=== PATIENT | female | born 1970 | race Caucasian/White ===

== ENCOUNTER 2018-09-27 17:33 | Inpatient (IN) | payer OTHER ==
[~2018-09-27] VITALS: Ht 175.3 cm; Wt 99.8 kg
[2018-09-27 17:34] VITALS: BP 101/77
[2018-09-27] MEDS ORDERED: LYRICA150 MG PO (17:59)
[2018-09-27] MEDS ORDERED: GLYBURIDE 2.52.5 M1 PO (18:00)
[2018-09-27] MEDS ORDERED: NEURONTIN 400M400 M2 PO (18:00)
[2018-09-27 18:01] LABS: URINE BILIRUBIN NEGATIVE (Negative); URINE BLOOD NEGATIVE (Negative); URINE CLARITY CLEAR; URINE COLOR YELLOW; URINE GLUCOSE-RANDOM* 3+ (Negative); URINE KETONES NEGATIVE (Negative); URINE LEUKOCYTES NEGATIVE (Negative); URINE NITRITE NEGATIVE (Negative); URINE PROTEIN (DIPSTICK) NEGATIVE (Negative); URINE SPECIFIC GRAVITY 1.015 (1.005-1.035); URINE UROBILINOGEN 0.2 E.U./dl (0.2-1.0)
[2018-09-27 18:10] LABS: ABSOLUTE NEUTROPHILS 4.2 thou/uL (1.4-8.2); BASOPHILS 0.8 % (0.0-2.0); EOSINOPHILS 1.3 % (0.0-3.0); HEMATOCRIT 47.3 % (37.0-47.0); HEMOGLOBIN 16.4 gm/dL (12.0-15.0); LYMPHOCYTES 36.3 % (24.0-44.0); MCH 29.5 pg (26.0-34.0); MCHC 34.7 g/dL (28.0-37.0); MCV 84.9 fL (80.0-100.0); MONOCYTES 5.9 % (1.0-8.0); PLATELET COUNT 282 thou/uL (150-400); POLYS 55.7 % (36.0-66.0); RBC 5.57 mil/uL (4.20-5.00); WBC 7.6 thou/uL (4.0-11.0)
[2018-09-27 18:18] LABS: CALCIUM 9.5 mg/dL (8.5-10.1); CREATININE 0.8 mg/dL (0.6-1.0); POTASSIUM 3.7 mmol/L (3.5-5.1)
[2018-09-27 18:24] LABS: ALBUMIN 3.4 g/dL (3.4-5.0); DIRECT BILIRUBIN 0.1 mg/dL (<0.1-0.3); TOTAL BILIRUBIN 0.5 mg/dL (<0.1-1.0); TOTAL PROTEIN 8.8 g/dL (6.4-8.2)
[2018-09-27 20:32] VITALS: BP 112/92; BP 117/81
[2018-09-27 21:33] VITALS: BP 117/81
[2018-09-27 23:05] VITALS: BP 123/80
[2018-09-28 01:03] LABS: HEMATOCRIT 39.2 % (37.0-47.0); MCH 28.9 pg (26.0-34.0); MCHC 33.3 g/dL (28.0-37.0); MCV 86.7 fL (80.0-100.0); RBC 4.53 mil/uL (4.20-5.00); RDW 13.9 % (10.5-14.5); WBC 6.7 thou/uL (4.0-11.0)
[2018-09-28 01:08] LABS: HEMOGLOBIN 13.1 gm/dL (12.0-15.0)
[2018-09-28 01:16] LABS: ALBUMIN 2.7 g/dL (3.4-5.0); CALCIUM 7.9 mg/dL (8.5-10.1); CREATININE 0.7 mg/dL (0.6-1.0); POTASSIUM 3.6 mmol/L (3.5-5.1); TOTAL BILIRUBIN 0.5 mg/dL (<0.1-1.0)
--- NOTE | 2018-09-28 03:26 | NUR ---
PT ARRIVED FROM ED 200. VSS. ASESSMENT COMPLETED. ADMISSION COMPLETE. PT ORIENTED TO ROOM. ORDERS AKNOWLEDGED AND IMPLEMENTED. WILL CONTINUE POC UNTIL EOS.
[2018-09-28 04:00] VITALS: BP 98/61
[2018-09-28 07:48] VITALS: BP 118/74
--- NOTE | 2018-09-28 12:33 | NUR ---
ASSESSMENT-PT LIVES IN AN APT WITH HER SON. SHE SAYS HER EX SMASHED HER BLOOD GLUCOSE METER AND FLUSHED HER MEDICATIONS DOWN THE TOILET. PT SAYS SHE HAS LOTS OF BLOOD GLUCOSE STRIPS AT HOME BUT NEEDS A METER. ASKED HER TO SEE IF HER SON CAN BRING OVER A BOX OF THE STRIPS SO WE CAN TRY TO GET HER A METER TO FIT THEM. PT WALKS ON HER OWN AND DOES HER OWN ADLS. SHE CAN DRIVE BUT HER CAN IS BROKE DOWN PRESENTLY BUT WILL HAVE HER SON TAKE HER PLACES OR SHE CAN USE THE SON'S TRUCK TOO. PT SAYS SHE WILL NEED HELP WITH HER MEDICATIONS.
--- NOTE | 2018-09-28 12:37 | NUR ---
ASSUMED CARE AT 0700, SHIFT ASSESSMENT DONE, MEDS GIVEN, VSS. DENIES ANY PAIN AT THIS TIME. WOUND CONSULT CALLED. UP AD ISELA. ACHS, ON MODERATE DOSE, COVERAGE PER eMAR. WILL CONTINUE TO ASSESS AND ASSIST WITH ADLs NEEDED.
[2018-09-28 17:09] VITALS: BP 115/68
[2018-09-28 17:10] LABS: HIV ANTIBODY Non Reactive (Non Reactive)
--- NOTE | 2018-09-28 17:21 | NUR ---
assisted pt with dc meds in outpt pharmcy jayant total of $693.22.
--- NOTE | 2018-09-28 17:23 | NUR ---
WOUND CONSULT: PT. WAS SEEN TODAY BY DR. GAO AND MYSELF. PT. HAS 3 ABCESS TO HER BACK THAT DR. GAO OPENED TODAY AT BEDSIDE. PT. TOLERATED WELL AND WOUNDS WERE PACKED POST I&D. RECOMMENDATIONS: WOUND CARE TO BACK: GENTLY CLEANSE WITH WOUND CLEANSER OR NORMAL SALINE, PACK WITH IODOFORM GAUZE PACKING, COVER WITH BORDERED FOAM, COMPLETE CARES DAILY AND PRN. PT. AND STAFF NURSE WERE INSTRUCTED ON PLAN OF CARE.
[2018-09-29 04:00] VITALS: BP 115/67
--- NOTE | 2018-09-29 07:57 | NUR ---
ASSUMED PT CARE 1899. PT ALERT AND ORIENTED. REASSESSMENT COMPLETE. VSS. FAMILY AT PT BEDSIDE. IV DRESSING C/D/I, NO SIGNS OF INFILTRATION. DRESSING TO DRAINED ABCESS ON BACK D/I, MEDIUM AMOUNT OF DRAINAGE. FAMILY AT PT BEDSIDE. PT DENIES N/V. PT REPORTS PAIN, SEE EMAR. REPORT GIVEN TO DAY NURSE.
[2018-09-29 08:07] LABS: GLYCOHEMOGLOBIN (HGB A1C) 12.6 % (4.8-5.6)
[2018-09-29 08:08] VITALS: BP 98/63
[2018-09-29] MEDS ORDERED: LANTUS100 UNIT/M SUBQ (09:28)
[2018-09-29] MEDS ORDERED: GLYBURIDE 5 MG T5 M1 PO (09:28)
[2018-09-29] MEDS ORDERED: CLEOCIN HCL150 MG PO (09:29)
[2018-09-29 11:08] VITALS: BP 98/63
--- NOTE | 2018-09-29 12:12 | NUR ---
ASSUMED CARE OF PT AT 0700. ASSESSMENT COMPLETED. A&O,X4. C/O IV BURNING, NEW IV INSERTED RIGHT FOREARM. BACK ABSCESS X3, DRESSING CHANGED. ALL OTHER SKIN INTACT. ROOM AIR. CLEAR/DIM LUNG SOUNDS, WHEEZES RIGHT SIDE. BREATHING TREATMENTS SCHEDULED. DENIES SOA. ACHS, INSULIN GIVEN PER SLIDING SCALE. DIABETIC EDUCATION GIVEN. NEW DISCHARGE ORDERS. NEW SCRIPTS AND CARENOTES GIVEN. MEDS FILLED AND SENT WITH PT. IV REMOVED, NO ACTIVE BLEEDING. PT REFUSED WHEELCHAIR ESCORT. PT LEFT THE UNIT IN STABLE CONDITION AT 11:55.
--- NOTE | 2018-10-01 08:52 | HC ---
[facility] [place] [address] CONSULTATION Name: GERMAINE HENRY Room #: 423-1 [facility] IN M.R.#: [id number] Admission: 09/27/18 ������������������ Attend Phys: Nam Carranza Discharge: 09/29/18 ������������������ Date of : 74 Report #: [id number] THIS REPORT FOR: //name// CC: BONNY physician/PCP Nam Carranza DATE OF SERVICE: 09/28/2018 CHIEF COMPLAINT: Multiple abscesses to the mid back. HISTORY OF PRESENT ILLNESS: This is a 48-year-old female patient who was admitted through the Emergency Department, she noted possible abscesses on her back. She had a very small incision and drainage of one of them last night in the Emergency Department. She states that these have been present for the last 2 weeks. She also notes a little bit of a lump under her arm. The patient has a history of diabetes mellitus, but has not been taking her insulin for various reasons. PAST MEDICAL HISTORY: Positive for type 2 diabetes mellitus, peripheral neuropathy, previous cholecystectomy, previous facial cyst and a preauricular "Mojica" drain and history of anxiety. SOCIAL HISTORY: The patient uses marijuana, admits to smoking cigarettes, 1 pack per day. Admits to alcohol consumption on special occasions basis. FAMILY HISTORY: Positive for breast cancer in her mother and diabetes in her great grandfather. MEDICATIONS: Insulin, pregabalin and glyburide. ALLERGIES: PENICILLIN. REVIEW OF SYSTEMS: CONSTITUTIONAL: The patient denies fever, chills or weight loss. NEUROLOGICAL: The patient denies focal wasting. EYES: The patient denies visual changes, redness or drainage. ENT: The patient denies earache, nasal drainage or sore throat. CARDIOVASCULAR: The patient denies chest pain, palpitations, diaphoresis. PULMONARY: The patient denies cough or shortness of breath. GASTROINTESTINAL: The patient denies nausea, abdominal pain. ORTHOPEDIC AND SKIN: The patient does note the abscesses on her back and possibly in her right axillary region. Other systems in a 14-point review of systems are negative. PHYSICAL EXAMINATION: VITAL SIGNS: At this time include pulse 99, respiration of 18, blood pressure [facility] [address] [place] [address] CONSULTATION Name: GERMAINE HENRY Room #: 423-1 [facility] IN ..#: [id number] Admission: 09/27/18 ������������������ Attend Phys: aNm Carranza Discharge: 09/29/18 ������������������ Date of : 74 Report #: [id number] 118/74, temperature 97.7. GENERAL: This is a chronically ill-appearing female patient who appears to be in minimal distress. HEENT: Head normocephalic. Nose and throat clear. NECK: Supple. LUNGS: Clear. HEART: Regular rhythm. ABDOMEN: Soft. Bowel sounds present. EXTREMITIES: Axillary region bilaterally demonstrate possibly some areas of tenderness. I do not find any areas of erythema or fluctuance or obvious abscess. The back is examined, the mid back demonstrates 3 areas of abscess. One of them has a small pinpoint type opening, presumably from the Emergency Department incision and drainage. I am able to express additional purulent material. There appears to be undermining around this area. There are two other areas of induration and tenderness suggestive of additional abscesses. These were all incised and drained. Please see separate procedure note regarding this today at the bedside. The patient tolerated the procedure well. NEUROLOGIC: The patient is alert, oriented, appropriate. LABORATORY DATA: Includes sodium 137, potassium 3.6, chloride 102, CO2 of 26, BUN 10, creatinine 0.7, glucose 354, albumin is 2.7. White blood cell count 6.7, hemoglobin 13.1, hematocrit of 39.2. CLINICAL IMPRESSION: 1. Multiple abscesses to the mid back, now status post incision and drainage at the bedside today. 2. Type 2 diabetes mellitus with hyperglycemia. 3. Mild protein calorie malnutrition. 4. Morbid obesity. RECOMMENDATIONS: At this point in time, we will recommend empiric antibiotic coverage, pending culture and sensitivity results, will recommend packing of the abscess cavities daily or every other day with quarter inch iodoform gauze and then covering with either a bordered foam dressing or ABD secured with tape. All questions have been answered. I appreciate being asked to see her in consultation. ��������������������������������������������� <ELECTRONICALLY SIGNED> ���������������������������������������� By: Adi Delgadillo MD ��������������������������������������������� 10/01/18 [id number] Adi Delgadillo MD /nt
--- NOTE | 2018-10-01 08:52 | P ---
[facility] [place] [address] PROCEDURE REPORT Name: GERMAINE HENRY Room #: 423-1 [facility] IN M.R.#: [id number] Admission: 09/27/18 ������������������ Attend Phys: Nam Carranza Discharge: 09/29/18 ������������������ Date of : 74 Report #: [id number] THIS REPORT FOR: //name// CC: BONNY physician/PCP Nam Carranza DATE OF SERVICE: 09/28/2018 PREPROCEDURE DIAGNOSIS: Three separate abscesses to the mid back. POSTPROCEDURE DIAGNOSIS: Three separate abscesses to the mid back. PROCEDURE PERFORMED: Incision and drainage of abscesses to the mid back. DESCRIPION OF PROCEDURE: After adequate discussion of the condition, the patient has given verbal consent for incision and drainage. The area was prepped and draped in the usual sterile fashion, anesthetized with 1% lidocaine with 1:100,000 concentration of epinephrine. There were 3 areas of fluctuance and the area on the left had a very small attempted incision and drainage in the Emergency Department. I have used a #15 bladed scalpel and performed full incision and drainage, releasing additional purulent material. An additional incision was made with both the middle and right-sided areas of fluctuance as well. Post-procedure, the measurements on the left wound were 1.9 cm x 0.5 cm x 1.8 cm. The middle was measured at 1.8 cm x 0.5 cm x 1.1 cm and the right-sided abscess cavity was 1.2 x 0.5 x 1.0 cm. These were all packed with quarter-inch iodoform gauze. The patient tolerated the procedure well. ESTIMATED BLOOD LOSS: 3 mL. SPECIMEN SENT: None. ��������������������������������������������� <ELECTRONICALLY SIGNED> ���������������������������������������� By: Adi Delgadillo MD ��������������������������������������������� 10/01/18 [id number] Adi Delgadillo MD /nt
[2018-10-02 15:05] LABS: HAV IgM AB (ANTI-HAV IgM) Negative (Negative); HEPATITIS B SURFACE AG Negative (Negative); HEPATITIS C VIRUS AB 0.2 (0.0-0.9)
== END 2018-09-29 12:23 | disposition home or self-care (01) | DRG 602 ==
LOC: ER 17:33 → EROBS 21:05 → 4E 21:05
PROVIDERS: Nurse Practitioner; Nurse Practitioner Acute Care; ADMIT Hospitalist
PROC: 0H95XZZ Drainage of Chest Skin, External Approach (ICD-10-PCS; principal; 2018-09-27)
PROC: 0W9K0ZZ Drainage of Upper Back, Open Approach (ICD-10-PCS; 2018-09-28)
DX: L02.212 Cutaneous abscess of back [any part, except buttock and flank] (principal); J18.9 Pneumonia, unspecified organism; E87.2 Acidosis; E44.1 Mild protein-calorie malnutrition; L02.411 Cutaneous abscess of right axilla; E11.65 Type 2 diabetes mellitus with hyperglycemia; F41.9 Anxiety disorder, unspecified; E66.01 Morbid (severe) obesity due to excess calories; E11.42 Type 2 diabetes mellitus with diabetic polyneuropathy; F17.210 Nicotine dependence, cigarettes, uncomplicated; Z79.84 Long term (current) use of oral hypoglycemic drugs; Z88.0 Allergy status to penicillin; Z90.49 Acquired absence of other specified parts of digestive tract; Z80.3 Family history of malignant neoplasm of breast; Z83.3 Family history of diabetes mellitus; Z68.32 Body mass index [BMI] 32.0-32.9, adult; Z91.040 Latex allergy status
CPT/HCPCS: 10084

== ENCOUNTER 2018-10-04 19:48 | Emergency (ER) | payer OTHER ==
[~2018-10-04] VITALS: Ht 175.3 cm; Wt 99.8 kg
[~2018-10-04 19:48] MED LIST: CLEOCIN HCL150 MG PO; GLYBURIDE 2.52.5 M1 PO; GLYBURIDE 5 MG T5 M1 PO; LANTUS100 UNIT/M SUBQ; LYRICA150 MG PO; NEURONTIN 400M400 M2 PO
[2018-10-04 20:54] LABS: URINE BILIRUBIN NEGATIVE (Negative); URINE BLOOD NEGATIVE (Negative); URINE CLARITY CLEAR; URINE COLOR YELLOW; URINE GLUCOSE-RANDOM* 3+ (Negative); URINE KETONES NEGATIVE (Negative); URINE LEUKOCYTES-REFLEX TRACE (Negative); URINE NITRITE-REFLEX NEGATIVE (Negative); URINE PROTEIN (DIPSTICK) NEGATIVE (Negative); URINE SPECIFIC GRAVITY 1.015 (1.005-1.035); URINE UROBILINOGEN 0.2 E.U./dl (0.2-1.0)
[2018-10-04 21:04] LABS: BASOPHILS 0.7 % (0.0-2.0); EOSINOPHILS 1.4 % (0.0-3.0); HEMATOCRIT 45.5 % (37.0-47.0); HEMOGLOBIN 15.4 gm/dL (12.0-15.0); LYMPHOCYTES 33.2 % (24.0-44.0); MCHC 33.9 g/dL (28.0-37.0); MCV 85.5 fL (80.0-100.0); MONOCYTES 4.1 % (1.0-8.0); PLATELET COUNT 380 thou/uL (150-400); POLYS 60.6 % (36.0-66.0); RBC 5.32 mil/uL (4.20-5.00); RDW 14.2 % (10.5-14.5); WBC 11.6 thou/uL (4.0-11.0)
[2018-10-04 21:20] LABS: CALCIUM 9.8 mg/dL (8.5-10.1); CREATININE 0.9 mg/dL (0.6-1.0); POTASSIUM 3.8 mmol/L (3.5-5.1)
[2018-10-04 21:25] LABS: ALBUMIN 3.4 g/dL (3.4-5.0); TOTAL BILIRUBIN 0.4 mg/dL (<0.1-1.0)
[2018-10-04] MEDS ORDERED: NORCO 10-325 T1 EACH PO (22:05)
[2018-10-04] MEDS ORDERED: ACYCLOVIR 400400 MG PO (22:05)
[2018-10-04] MEDS ORDERED: BACTRIM DS TAB1 EACH PO (22:09)
[2018-10-04 22:23] VITALS: BP 147/96
== END 2018-10-04 22:24 | disposition home or self-care (01) ==
LOC: ER 19:48
PROVIDERS: Physician Assistant
DX: L02.211 Cutaneous abscess of abdominal wall (principal); A60.04 Herpesviral vulvovaginitis; E11.65 Type 2 diabetes mellitus with hyperglycemia; E11.40 Type 2 diabetes mellitus with diabetic neuropathy, unspecified; F17.210 Nicotine dependence, cigarettes, uncomplicated; Z79.4 Long term (current) use of insulin; Z88.0 Allergy status to penicillin; Z91.040 Latex allergy status